=== PATIENT | male | born 1975 | race Caucasian/White ===

== ENCOUNTER 2017-01-09 16:19 | Inpatient (IN) | payer BC, OTHER ==
[~2017-01-09] VITALS: Ht 175.3 cm; Wt 129.3 kg
[2017-01-09 22:10] VITALS: BP 142/93
[2017-01-09 22:45] LABS: *AMPHETAMINE, URINE NEGATIVE (NEGATIVE); *BARBITURATE, URINE NEGATIVE (NEGATIVE); *CANNABINOID, URINE NEGATIVE (NEGATIVE); *COCCAINE, URINE POSITIVE (NEGATIVE); *OPIATE, URINE POSITIVE (NEGATIVE); *PHENCYCLIDINE SCREEN,URINE NEGATIVE (NEGATIVE)
[2017-01-09 23:35] LABS: BASOPHILS # (AUTO) 0.1 K/uL (0.0-8.0); BASOPHILS % (AUTO) 0.9 % (0.0-2.0); EOSINOPHILS # (AUTO) 0.1 K/uL (0.0-0.7); EOSINOPHILS % (AUTO) 0.4 % (0.0-7.0); HEMATOCRIT 37.7 % (40-50); HEMOGLOBIN 12.2 G/DL (14.0-18.0); LYMPHOCYTES # (AUTO) 3.7 K/UL (0.8-4.8); LYMPHOCYTES % (AUTO) 24.6 % (20.5-51.5); MEAN CORPUSCULAR HEMOGLOBIN 27.3 UUG (27.0-31.0); MEAN CORPUSCULAR HGB CONC 32 g/dL (32.0-37.0); MEAN CORPUSCULAR VOLUME 84.4 FL (82.0-92.0); MONOCYTES # (AUTO) 0.8 K/UL (0.1-1.30); MONOCYTES % (AUTO) 5.2 % (0.0-11.0); NEUTROPHILS # (AUTO) 10.3 K/UL (1.8-8.9); NEUTROPHILS % (AUTO) 68.9 % (38.5-71.5); PLATELET COUNT (AUTO) 349 K/UL (150-450); RED BLOOD CELL COUNT(AUTO) 4.47 MIL/UL (4.7-6.1)
[2017-01-09 23:53] LABS: ALANINE AMINOTRANSFERASE 26 U/L (16-63); ALKALINE PHOSPHATASE 96 U/L (50-136); AMYLASE 71 U/L (25-115); ASPARTATE AMINOTRANSFERASE 14 U/L (15-37); BILIRUBIN,TOTAL 0.4 mg/dL (0.2-1.0); CARBON DIOXIDE 30 mmol/L (21-32); CHLORIDE 90 mmol/L (98-107); CREATININE 1.6 mg/dL (0.6-1.3); LIPASE 229 U/L (73-393); MAGNESIUM 1.9 mg/dL (1.8-2.4); POTASSIUM 4.2 mmol/L (3.5-5.1); TOTAL PROTEIN, SERUM 8.2 g/dL (6.4-8.2); UREA NITROGEN, BLOOD 12 mg/dL (7-18)
[2017-01-10] VITALS: BP 145/89
[2017-01-10 00:04] LABS: THYROID STIMULATING HORMONE 1.266 mIU/mL (0.358-3.740)
[2017-01-10 00:21] LABS: BAND % (MANUAL) 2 % (0-10); LYMPHOCYTES % (MANUAL) 28 % (20-40); MONOCYTES % (MANUAL) 5 % (2-10); NEUTROPHILS % (MANUAL) 65 % (42-75)
[2017-01-10 00:27] LABS: GLUCOSE 594 mg/dL (74-106)
[2017-01-10 02:10] LABS: ETHANOL < 3 MG/DL (0-0)
[2017-01-10] MEDS ORDERED: HUM10VIA SQ (03:45)
[2017-01-10 04:00] VITALS: BP 143/85
[2017-01-10] MEDS ORDERED: LISI-607 PO (04:52)
[2017-01-10 08:00] VITALS: BP 155/89
[2017-01-10 12:00] VITALS: BP 148/83
[2017-01-10 16:00] VITALS: BP 141/88
[2017-01-10 20:00] VITALS: BP 127/67
[2017-01-11] VITALS: BP 143/65
[2017-01-11 04:00] VITALS: BP 138/64
[2017-01-11 07:50] LABS: BASOPHILS % (AUTO) 0.3 % (0.0-2.0); EOSINOPHILS # (AUTO) 0.2 K/uL (0.0-0.7); EOSINOPHILS % (AUTO) 1.3 % (0.0-7.0); HEMATOCRIT 32.3 % (40-50); HEMOGLOBIN 10.7 G/DL (14.0-18.0); LYMPHOCYTES # (AUTO) 3.3 K/UL (0.8-4.8); LYMPHOCYTES % (AUTO) 27.6 % (20.5-51.5); MEAN CORPUSCULAR HEMOGLOBIN 27.6 UUG (27.0-31.0); MEAN CORPUSCULAR HGB CONC 33 g/dL (32.0-37.0); MEAN CORPUSCULAR VOLUME 83.6 FL (82.0-92.0); MONOCYTES # (AUTO) 0.8 K/UL (0.1-1.30); MONOCYTES % (AUTO) 6.8 % (0.0-11.0); NEUTROPHILS # (AUTO) 7.8 K/UL (1.8-8.9); PLATELET COUNT (AUTO) 302 K/UL (150-450); RED BLOOD CELL COUNT(AUTO) 3.86 MIL/UL (4.7-6.1); WHITE BLOOD COUNT (AUTO) 12.1 K/UL (4.0-11.2)
[2017-01-11 07:56] LABS: CREATININE 1.1 mg/dL (0.6-1.3); PHOSPHOROUS 3.6 mg/dL (2.5-4.9); POTASSIUM 4.5 mmol/L (3.5-5.1)
[2017-01-11 08:08] LABS: HEPATITIS B SURFACE AG Negative (Negative)
[2017-01-11 08:32] VITALS: BP 155/81
[2017-01-11 12:44] VITALS: BP 148/90
[2017-01-11 16:55] VITALS: BP 157/87
[2017-01-11 20:00] VITALS: BP 155/79
[2017-01-12 02:25] VITALS: BP 147/70
[2017-01-12 04:00] VITALS: BP 156/74
[2017-01-12 07:04] LABS: BASOPHILS # (AUTO) 0.1 K/uL (0.0-8.0); BASOPHILS % (AUTO) 0.5 % (0.0-2.0); EOSINOPHILS # (AUTO) 0.3 K/uL (0.0-0.7); EOSINOPHILS % (AUTO) 1.8 % (0.0-7.0); HEMATOCRIT 30.9 % (40-50); LYMPHOCYTES # (AUTO) 3.7 K/UL (0.8-4.8); LYMPHOCYTES % (AUTO) 25.6 % (20.5-51.5); MEAN CORPUSCULAR HEMOGLOBIN 27.2 UUG (27.0-31.0); MEAN CORPUSCULAR HGB CONC 32 g/dL (32.0-37.0); MONOCYTES # (AUTO) 0.8 K/UL (0.1-1.30); MONOCYTES % (AUTO) 5.8 % (0.0-11.0); NEUTROPHILS # (AUTO) 9.4 K/UL (1.8-8.9); NEUTROPHILS % (AUTO) 66.3 % (38.5-71.5); PLATELET COUNT (AUTO) 267 K/UL (150-450); RED BLOOD CELL COUNT(AUTO) 3.68 MIL/UL (4.7-6.1); WHITE BLOOD COUNT (AUTO) 14.3 K/UL (4.0-11.2)
[2017-01-12 07:24] LABS: CREATININE 1.2 mg/dL (0.6-1.3); MAGNESIUM 1.8 mg/dL (1.8-2.4); PHOSPHOROUS 4.3 mg/dL (2.5-4.9); POTASSIUM 4.8 mmol/L (3.5-5.1)
[2017-01-12 08:00] VITALS: BP 179/87
[2017-01-12 12:00] VITALS: BP 156/74
[2017-01-12 12:49] LABS: BAND % (MANUAL) 2 % (0-10); EOSINOPHILS % (MANUAL) 3 % (0-8); LYMPHOCYTES % (MANUAL) 24 % (20-40); METAMYELOCYTES % 2 % (0-1); MONOCYTES % (MANUAL) 4 % (2-10); NEUTROPHILS % (MANUAL) 65 % (42-75)
[2017-01-12 16:00] VITALS: BP 164/81
[2017-01-12 20:00] VITALS: BP 158/90
[2017-01-13] VITALS: BP 147/79
[2017-01-13 04:00] VITALS: BP 144/77
[2017-01-13 07:02] LABS: BASOPHILS % (AUTO) 0.3 % (0.0-2.0); EOSINOPHILS # (AUTO) 0.2 K/uL (0.0-0.7); EOSINOPHILS % (AUTO) 1.5 % (0.0-7.0); HEMATOCRIT 30.6 % (40-50); HEMOGLOBIN 10.2 G/DL (14.0-18.0); LYMPHOCYTES # (AUTO) 3.8 K/UL (0.8-4.8); LYMPHOCYTES % (AUTO) 27.5 % (20.5-51.5); MEAN CORPUSCULAR HEMOGLOBIN 27.8 UUG (27.0-31.0); MEAN CORPUSCULAR HGB CONC 33 g/dL (32.0-37.0); MEAN CORPUSCULAR VOLUME 83.5 FL (82.0-92.0); MONOCYTES # (AUTO) 0.8 K/UL (0.1-1.30); MONOCYTES % (AUTO) 5.5 % (0.0-11.0); NEUTROPHILS # (AUTO) 9.1 K/UL (1.8-8.9); NEUTROPHILS % (AUTO) 65.2 % (38.5-71.5); PLATELET COUNT (AUTO) 264 K/UL (150-450); RED BLOOD CELL COUNT(AUTO) 3.67 MIL/UL (4.7-6.1); WHITE BLOOD COUNT (AUTO) 13.9 K/UL (4.0-11.2)
[2017-01-13 07:16] LABS: CREATININE 0.9 mg/dL (0.6-1.3); MAGNESIUM 1.6 mg/dL (1.8-2.4); PHOSPHOROUS 4.2 mg/dL (2.5-4.9); POTASSIUM 4.4 mmol/L (3.5-5.1)
[2017-01-13 08:55] VITALS: BP 143/78
[2017-01-13 12:03] LABS: *BILIRUBIN,URIN NEGATIVE (NEGATIVE); *BLOOD, URINE Trace-intact (NEGATIVE); *CLARITY,URINE CLEAR (CLEAR); *COLOR,URINE YELLOW (YELLOW); *KETONES,URINE NEGATIVE (NEGATIVE); *PROTEIN,URINE NEGATIVE (NEGATIVE); *UROBILINOGEN,URINE 0.2 E.U./dl (NORMAL); LEUKOCYTE ESTERASE ,URINE NEGATIVE (NEGATIVE); NITRITE, URINE NEGATIVE (NEGATIVE); PH,URINE 5.5 (5.0-8.0)
[2017-01-13 12:14] LABS: UGLUCOSE 2+ (NEGATIVE)
[2017-01-13 12:15] LABS: BACTERIA,URINE NONE SEEN /HPF (NONE SEEN); SQUAMOUS EPITHELIAL CELL,UR MODERATE /HPF (NONE SEEN); WBC,URINE 0-3 /HPF (0-3)
[2017-01-13 12:55] VITALS: BP 158/91
[2017-01-13 16:56] VITALS: BP 168/91
[2017-01-13 20:00] VITALS: BP 159/83
[2017-01-14 00:20] VITALS: BP 160/85
[2017-01-14 04:00] VITALS: BP 154/74
[2017-01-14 08:00] VITALS: BP 173/99
[2017-01-14 12:00] VITALS: BP 153/79
[2017-01-14 16:00] VITALS: BP 147/81
[2017-01-14 20:00] VITALS: BP 162/72
[2017-01-15] VITALS: BP 152/83
[2017-01-15 04:00] VITALS: BP 151/80
[2017-01-15 07:09] LABS: BASOPHILS % (AUTO) 0.3 % (0.0-2.0); EOSINOPHILS # (AUTO) 0.2 K/uL (0.0-0.7); EOSINOPHILS % (AUTO) 1.5 % (0.0-7.0); HEMOGLOBIN 10.1 G/DL (14.0-18.0); LYMPHOCYTES # (AUTO) 3.5 K/UL (0.8-4.8); LYMPHOCYTES % (AUTO) 25.5 % (20.5-51.5); MEAN CORPUSCULAR HEMOGLOBIN 27.1 UUG (27.0-31.0); MEAN CORPUSCULAR HGB CONC 33 g/dL (32.0-37.0); MEAN CORPUSCULAR VOLUME 83.6 FL (82.0-92.0); MONOCYTES # (AUTO) 0.8 K/UL (0.1-1.30); MONOCYTES % (AUTO) 5.9 % (0.0-11.0); NEUTROPHILS # (AUTO) 9.1 K/UL (1.8-8.9); NEUTROPHILS % (AUTO) 66.8 % (38.5-71.5); PLATELET COUNT (AUTO) 277 K/UL (150-450); RED BLOOD CELL COUNT(AUTO) 3.71 MIL/UL (4.7-6.1); WHITE BLOOD COUNT (AUTO) 13.6 K/UL (4.0-11.2)
[2017-01-15 07:23] LABS: CREATININE 1.1 mg/dL (0.6-1.3); MAGNESIUM 1.8 mg/dL (1.8-2.4); PHOSPHOROUS 4.6 mg/dL (2.5-4.9); POTASSIUM 5.1 mmol/L (3.5-5.1)
[2017-01-15 08:00] VITALS: BP 160/78
[2017-01-15 12:00] VITALS: BP 158/77
[2017-01-15] MEDS ORDERED: LISI-603 PO (13:31)
[2017-01-15] MEDS ORDERED: INSU100V28 SQ ×2 (13:31)
[2017-01-15] MEDS ORDERED: CLON0.1T14 PO (13:31)
[2017-01-15] MEDS ORDERED: AMLO5TAB2 PO (13:31)
[2017-01-15] MEDS ORDERED: GABA-534 PO (13:31)
[2017-01-15] MEDS ORDERED: METF500T4 PO (13:31)
[2017-01-15] MEDS ORDERED: INSU100I19 SQ (13:31)
[2017-01-15] MEDS ORDERED: NICO4GUM38 BC (13:31)
[2017-01-15] MEDS ORDERED: LACT1CAP57 PO (13:31)
[2017-01-15] MEDS ORDERED: HYDR50TA68 PO (13:31)
[2017-01-15 16:00] VITALS: BP 130/91
[2017-01-15 20:00] VITALS: BP 155/89
[2017-01-16 08:00] VITALS: BP 148/86
[2017-01-16 08:12] VITALS: BP 144/78
== END 2017-01-16 09:37 | disposition other institution (70) | DRG 895 ==
LOC: SRC 21:19
PROVIDERS: ADMIT Internal Medicine; ATTEND Internal Medicine
PROC: HZ2ZZZZ Detoxification Services for Substance Abuse Treatment (ICD-10-PCS; principal; 2017-01-09)
PROC: HZ31ZZZ Individual Counseling for Substance Abuse Treatment, Behavioral (ICD-10-PCS; 2017-01-10)
PROC: HZ41ZZZ Group Counseling for Substance Abuse Treatment, Behavioral (ICD-10-PCS; 2017-01-10)
DX: F10.230 Alcohol dependence with withdrawal, uncomplicated (principal); N17.9 Acute kidney failure, unspecified; E11.22 Type 2 diabetes mellitus with diabetic chronic kidney disease; E11.65 Type 2 diabetes mellitus with hyperglycemia; E87.1 Hypo-osmolality and hyponatremia; N39.0 Urinary tract infection, site not specified; F11.23 Opioid dependence with withdrawal; Y90.0 Blood alcohol level of less than 20 mg/100 ml; I12.9 Hypertensive chronic kidney disease with stage 1 through stage 4 chronic kidney disease, or unspecified chronic kidney disease; N18.9 Chronic kidney disease, unspecified; Z79.4 Long term (current) use of insulin; Z87.828 Personal history of other (healed) physical injury and trauma; Z91.11 Patient's noncompliance with dietary regimen; Z79.899 Other long term (current) drug therapy; F14.10 Cocaine abuse, uncomplicated
CPT/HCPCS: 36415; 70030-TC; 80307; 80353; 80361; 83690; 83735; 84100; 84443; 85025; 86580; 86592; 86705; 86803; 87086; 87340; 87806; A4663; G0480; J1815; J3411; J7030; J7040; Q0162; Q0163